=== PATIENT | male | born 1995 | race Native Hawaiian/Other Pacific Islander ===

== ENCOUNTER 2019-06-04 10:23 | Emergency (ER) | payer OTHER ==
[~2019-06-04] VITALS: Ht 185.4 cm; Wt 97.5 kg
[2019-06-04 10:27] VITALS: TEMP 97.7
[2019-06-04 10:48] LABS: PLATELET COUNT 310 K/uL (142-355)
[2019-06-04 10:55] LABS: POTASSIUM 3.3 mmol/L (3.6-5.2)
[2019-06-04 14:50] VITALS: BP 132/77
== END 2019-06-04 14:50 | disposition home or self-care (01) ==
LOC: ED 10:23
PROVIDERS: Emergency Medicine
DX: N30.90 Cystitis, unspecified without hematuria (principal); N39.0 Urinary tract infection, site not specified; N23 Unspecified renal colic
CPT/HCPCS: 36415; 80053; 81000; 82150; 83690; 85027; 96360; 96372; 96375; 99284; J0696; J1885

== ENCOUNTER 2019-06-04 11:34 | Outpatient (CLI) | payer OTHER | END 2019-06-04 11:57 | disposition short-term general hospital (02) | LOC: AMB 11:34 | DX: R10.32 Left lower quadrant pain (principal) | CPT/HCPCS: A0425; A0429 ==

== ENCOUNTER 2022-04-03 21:47 | Emergency (ER) | payer OTHER ==
[~2022-04-03] VITALS: Ht 185.4 cm; Wt 98.0 kg
[2022-04-03 22:58] VITALS: BP 126/80; TEMP 98.1
== END 2022-04-03 22:58 | disposition left against medical advice (07) ==
LOC: ED 21:47
DX: T67.8XXA Other effects of heat and light, initial encounter (principal); X30.XXXA Exposure to excessive natural heat, initial encounter; Y92.89 Other specified places as the place of occurrence of the external cause; Z53.29 Procedure and treatment not carried out because of patient's decision for other reasons
CPT/HCPCS: 80307; 81002; 99281